=== PATIENT | female | born 1960 | race Caucasian/White ===

== ENCOUNTER → 2018-03-07 | Outpatient (CLI) | payer BC | LOC: LAB 08:41 | DX: N30.00 Acute cystitis without hematuria (principal) ==

== ENCOUNTER → 2018-08-08 | Outpatient (CLI) | payer BC ==
[2018-08-04 21:51] VITALS: BP 116/72
[~2018-08-08] MED LIST: ACETAMINOPHEN-O1 TAB PO; SEPTRA DS 8001 TAB PO; ZOFRAN ODT4 MG PO
[2018-08-08 11:10] LABS: URINE APPEARANCE CLEAR; URINE COLOR YELLOW; URINE GLUCOSE NEGATIVE (NEGATIVE); URINE KETONE NEGATIVE (NEGATIVE); URINE PROTEIN(semi-quant) NEGATIVE (NEGATIVE)
[2018-08-08 11:11] LABS: URINE BILIRUBIN NEGATIVE (NEGATIVE); URINE BLOOD 50 ery/uL (NEGATIVE); URINE LEUKOCYTE ESTERASE NEGATIVE (NEGATIVE); URINE NITRATE NEGATIVE (NEGATIVE); URINE UROBILINOGEN NORMAL (NORMAL)
== END ==
LOC: LAB 09:33
PROVIDERS: Family Medicine
DX: N20.0 Calculus of kidney (principal)

== ENCOUNTER 2018-09-06 13:18 | Observation (INO) | payer BC ==
[~2018-09-06] VITALS: Ht 162.6 cm; Wt 74.4 kg
[2018-09-06 14:21] LABS: ALBUMIN 4.1 g/dL (3.5-5.0); CALCIUM 8.9 mg/dL (8.4-10.2); POTASSIUM 3.3 mmol/L (3.6-5.0); TOTAL BILIRUBIN 0.7 mg/dL (0.2-1.3); TOTAL PROTEIN 7.2 g/dL (6.3-8.2)
[2018-09-06 14:22] LABS: BAND 4 % (0-10); HEMATOCRIT 37.4 % (37.0-47.0); HEMOGLOBIN 12.9 g/dL (12.5-16.0); LYMPHOCYTE 6 % (20-51); MEAN CELL VOLUME 88 fl (78-100); MEAN CORPUSCULAR HEMOGLOBIN 30 pg (27-31); MEAN CORPUSCULAR HGB CONC 35 g/dL (33-37); MEAN PLATELET VOLUME 11.3 fl (7.4-10.4); MONOCYTE 3 % (3-10); NEUTROPHILS 87 % (42-75); PLATELET COUNT 152 K/mm3 (130-400); RED BLOOD COUNT 4.24 M/mm3 (4.10-5.30); RED CELL DISTRIBUTION WIDTH 12.7 % (11.5-14.5); WHITE BLOOD COUNT 18.5 K/mm3 (4.8-10.8)
[2018-09-06 14:44] LABS: URINE APPEARANCE HAZY; URINE COLOR YELLOW; URINE PROTEIN(semi-quant) TRACE mg/dL (NEGATIVE)
[2018-09-06 14:45] VITALS: BP 106/61
[2018-09-06 14:45] LABS: URINE BILIRUBIN NEGATIVE (NEGATIVE); URINE BLOOD 250 ery/uL (NEGATIVE); URINE GLUCOSE NEGATIVE (NEGATIVE); URINE KETONE 1+ (NEGATIVE); URINE LEUKOCYTE ESTERASE 2+ (NEGATIVE); URINE NITRATE POSITIVE (NEGATIVE); URINE UROBILINOGEN NORMAL (NORMAL); URINE WBC 16-30 /hpf (0-3)
[2018-09-06 16:19] VITALS: BP 105/67
[2018-09-06 18:49] VITALS: BP 92/62
[2018-09-06 23:44] VITALS: BP 97/63
[2018-09-07 03:20] VITALS: BP 104/63
[2018-09-07 06:22] VITALS: BP 105/71
[2018-09-07 07:19] LABS: HEMATOCRIT 31.5 % (37.0-47.0); HEMOGLOBIN 10.6 g/dL (12.5-16.0); MEAN CELL VOLUME 90 fl (78-100); MEAN CORPUSCULAR HEMOGLOBIN 30 pg (27-31); MEAN CORPUSCULAR HGB CONC 34 g/dL (33-37); MEAN PLATELET VOLUME 11.4 fl (7.4-10.4); PLATELET COUNT 186 K/mm3 (130-400); RED BLOOD COUNT 3.52 M/mm3 (4.10-5.30); RED CELL DISTRIBUTION WIDTH 12.6 % (11.5-14.5); WHITE BLOOD COUNT 11.1 K/mm3 (4.8-10.8)
[2018-09-07 07:38] LABS: POTASSIUM 3.7 mmol/L (3.6-5.0)
[2018-09-07 08:24] LABS: BAND 1 % (0-10); LYMPHOCYTE 11 % (20-51); MONOCYTE 3 % (3-10); NEUTROPHILS 85 % (42-75)
[2018-09-07] MEDS ORDERED: LEVAQUIN 750MG750 M1 PO (11:19)
[2018-09-07] MEDS ORDERED: ZOFRAN4 M2 PO (11:20)
[2018-09-07] MEDS ORDERED: ULTRAM50 M1 PO (11:21)
[2018-09-07 11:37] VITALS: BP 95/67
[2018-09-07 14:32] VITALS: BP 96/66
== END 2018-09-07 16:57 | disposition home or self-care (01) ==
LOC: ED 13:18 → MED/SURG 15:29
PROVIDERS: ADMIT Physician Assistant
DX: N10 Acute pyelonephritis (principal); E86.0 Dehydration; E87.6 Hypokalemia; R11.2 Nausea with vomiting, unspecified; R74.0 Nonspecific elevation of levels of transaminase and lactic acid dehydrogenase [LDH]; Z87.442 Personal history of urinary calculi
CPT/HCPCS: G0378; J1650; J1885; J1956; J2405; J7030

== ENCOUNTER → 2018-09-20 | Outpatient (CLI) | payer BC ==
[2018-09-07 14:32] VITALS: BP 96/66
[~2018-09-20] MED LIST changes: +LEVAQUIN 750MG750 M1 PO; +ULTRAM50 M1 PO; +ZOFRAN4 M2 PO
[2018-09-20 09:25] LABS: EOS # 0.1 (0.04-0.40); EOS % 2.3 % (1.0-5.0); HEMATOCRIT 40.5 % (37.0-47.0); HEMOGLOBIN 13.3 g/dL (12.5-16.0); LYMPH# 1.2 (1.50-4.00); MEAN CELL VOLUME 91 fl (78-100); MEAN CORPUSCULAR HEMOGLOBIN 30 pg (27-31); MEAN CORPUSCULAR HGB CONC 33 g/dL (33-37); MEAN PLATELET VOLUME 10.1 fl (7.4-10.4); MONO # 0.5 (0.20-0.80); NEU # 3.5 (1.40-6.50); PLATELET COUNT 478 K/mm3 (130-400); RED BLOOD COUNT 4.47 M/mm3 (4.10-5.30); RED CELL DISTRIBUTION WIDTH 13.7 % (11.5-14.5); WHITE BLOOD COUNT 5.3 K/mm3 (4.8-10.8)
[2018-09-20 09:46] LABS: ALBUMIN 4.2 g/dL (3.5-5.0); CALCIUM 8.9 mg/dL (8.4-10.2); POTASSIUM 3.5 mmol/L (3.6-5.0); TOTAL BILIRUBIN 0.4 mg/dL (0.2-1.3)
== END ==
LOC: LAB 09:04
PROVIDERS: Family Medicine
DX: N12 Tubulo-interstitial nephritis, not specified as acute or chronic (principal); E87.6 Hypokalemia

== ENCOUNTER → 2018-10-30 | Outpatient (CLI) | payer BC ==
[2018-10-30 10:10] LABS: URINE APPEARANCE CLOUDY; URINE BILIRUBIN NEGATIVE (NEGATIVE); URINE COLOR YELLOW; URINE GLUCOSE NEGATIVE (NEGATIVE); URINE KETONE NEGATIVE (NEGATIVE); URINE PROTEIN(semi-quant) 1+ mg/dL (NEGATIVE); URINE UROBILINOGEN NORMAL (NORMAL)
[2018-10-30 10:11] LABS: URINE BLOOD 50 ery/uL (NEGATIVE); URINE LEUKOCYTE ESTERASE 2+ (NEGATIVE); URINE NITRATE POSITIVE (NEGATIVE); URINE WBC 31-50 /hpf (0-3)
== END ==
LOC: LAB 09:32
PROVIDERS: Family Medicine
DX: N20.0 Calculus of kidney (principal)

== ENCOUNTER → 2019-11-07 | Outpatient (CLI) | payer BC | LOC: LAB 13:03 | DX: R30.0 Dysuria (principal) ==